=== PATIENT | male | born 1975 | race Caucasian/White ===

== ENCOUNTER 2017-05-08 21:43 | Emergency (ER) | payer OTHER ==
[~2017-05-08] VITALS: Ht 182.9 cm; Wt 140.6 kg
[~2017-05-08 21:43] MED LIST: BENTYL 20 MG TA20 M1 PO; CHLORTHALIDONE25 MG PO; HYDROCHLOROTHIA25 M2 PO; LISINOPRIL10 MG PO; LOPRESSOR25 PO; NORCO 5-325 TA1 EACH PO; PANTOPRAZOLE SO40 M1 PO; TESSALON PERLE100 MG PO; TRAMADOL 50 MG50 MG PO; TRANSDERM-SCO1 PATC1 TD; ULTRAM 50MG TAB50 MG PO; ZOFRAN ODT4 MG PO
[2017-05-08] MEDS ORDERED: ASPIR 8181 MG PO (21:59)
[2017-05-08 22:30] LABS: ABSOLUTE EOSINOPHILS 0.2 thou/uL (0.0-0.7); ABSOLUTE LYMPHOCYTES 1.6 thou/uL (0.8-5.3); ABSOLUTE MONOCYTES 0.7 thou/uL (0.0-1.2); ABSOLUTE NEUTROPHILS 6.5 thou/uL (1.6-8.1); BASOPHILS 0.5 %; EOSINOPHILS 2.1 %; HEMATOCRIT 43.9 % (42.0-52.0); HEMOGLOBIN 15.1 gm/dL (14.0-18.0); LYMPHOCYTES 17.4 %; MCHC 34.5 g/dL (28.0-37.0); MONOCYTES 8.2 %; MPV 8.2 fl. (7.2-11.1); NUCLEATED RBCS 0 /100WBC; PLATELET COUNT* 170 thou/uL (150-400); POLYS 71.8 %; RBC 5.05 mil/uL (4.50-6.00); RDW-CV 13.4 % (10.5-14.5); WBC 9.1 thou/uL (4.0-11.0)
[2017-05-08 22:38] LABS: CREATININE 1.2 mg/dL (0.6-1.3); POTASSIUM 4.4 mmol/L (3.5-5.1)
[2017-05-08 22:53] LABS: ALBUMIN 3.5 g/dL (3.4-5.0); TOTAL BILIRUBIN 0.8 mg/dL (<0.1-1.0); TOTAL PROTEIN 7.4 g/dL (6.4-8.2)
[2017-05-08] MEDS ORDERED: CLEOCIN HCL150 MG PO (23:09)
[2017-05-08] MEDS ORDERED: HYDROCODONE-AP1 EAC6 PO (23:09)
[2017-05-08 23:25] VITALS: BP 150/98
== END 2017-05-08 23:25 | disposition home or self-care (01) ==
LOC: M.ERS 21:43
PROVIDERS: Emergency Medicine
DX: L03.012 Cellulitis of left finger (principal); I10 Essential (primary) hypertension; Z88.0 Allergy status to penicillin; Z88.2 Allergy status to sulfonamides

== ENCOUNTER 2017-07-29 18:58 | Emergency (ER) | payer OTHER ==
[~2017-07-29] VITALS: Ht 182.9 cm; Wt 145.2 kg
[~2017-07-29 18:58] MED LIST changes: +ASPIR 8181 MG PO; +CLEOCIN HCL150 MG PO; +HYDROCODONE-AP1 EAC6 PO
[2017-07-29] MEDS ORDERED: KEFLEX500 M1 PO (20:07)
[2017-07-29] MEDS ORDERED: HYDROCODONE-AP1 EAC6 PO (20:07)
[2017-07-29 20:24] VITALS: BP 132/68
== END 2017-07-29 20:25 | disposition home or self-care (01) ==
LOC: M.ERS 18:58
DX: S61.512A Laceration without foreign body of left wrist, initial encounter (principal); I10 Essential (primary) hypertension; Z88.0 Allergy status to penicillin; Z88.1 Allergy status to other antibiotic agents; W26.8XXA Contact with other sharp object(s), not elsewhere classified, initial encounter; Y93.89 Activity, other specified; Y92.89 Other specified places as the place of occurrence of the external cause; Y99.0 Civilian activity done for income or pay